=== PATIENT | female | born 1975 | race Caucasian/White ===

== ENCOUNTER 2021-12-08 15:33 | Emergency (ER) | payer OTHER, BC | END 2021-12-08 16:54 | disposition home or self-care (01) | LOC: MADERS 15:33 | DX: S60.811A Abrasion of right wrist, initial encounter (principal); S80.211A Abrasion, right knee, initial encounter; M25.50 Pain in unspecified joint; V43.52XA Car driver injured in collision with other type car in traffic accident, initial encounter; W22.11XA Striking against or struck by driver side automobile airbag, initial encounter; Z86.718 Personal history of other venous thrombosis and embolism | CPT/HCPCS: 70450 ==